=== PATIENT | female | born 1945 | race Caucasian/White ===

== ENCOUNTER 2017-03-28 01:17 | Emergency (ER) | payer MEDICARE ==
[2017-03-28 01:56] LABS: HEMATOCRIT 31.9 % (41.0-60); HEMOGLOBIN 10.8 gm/dL (12-16); MEAN CELL VOLUME 90.1 fl (81-100); MEAN CORPUSCULAR HEMOGLOBIN 30.6 pg (27.0-31.0); MEAN CORPUSCULAR HGB CONC 33.9 pg (28.0-36.0); MEAN PLATELET VOLUME 8.4 fl; PLATELET COUNT 306 Th/cmm (150-400); RED BLOOD COUNT 3.54 Mil/cmm (3.80-5.20); WHITE BLOOD COUNT 6.2 Th/cmm (4.8-10.8)
[2017-03-28 01:59] LABS: MANUAL DIFF REQUIRED? YES
[2017-03-28 02:13] LABS: ALB/GLOB RATIO 1.1 (1.0-1.8); ALBUMIN 3.1 gm/dL (3.7-5.3); ALKALINE PHOSPHATASE 50 U/L (34-104); ANION GAP 11.5 (7.0-16.0); BILIRUBIN,TOTAL 0.3 mg/dL (0.3-1.0); BUN - UREA NITROGEN 12 mg/dL (7-25); CALCIUM SERUM 8.6 mg/dL (8.6-10.3); CARBON DIOXIDE 23.7 mEq/L (21.0-31.0); CHLORIDE 109 mEq/L (98-107); CREATININE - SERUM 0.8 mg/dL (0.6-1.2); GFR AFRICAN-AMERICAN > 60.0 ml/min (>90); GFR NON AFRICAN-AMERICAN > 60.0 ml/min; GLUCOSE 167 mg/dL (70-105); POTASSIUM SERUM 3.2 mEq/L (3.5-5.1); SGOT 11 U/L (13-39); SGPT/ALT 9 U/L (7-52); SODIUM SERUM 141 mEq/L (136-145)
[2017-03-28 02:16] LABS: BAND NEUTROPHILE 4 % (0-10); EOSINOPHIL 2 % (0-5); LYMPHOCYTE 12 % (20-50); MONOCYTE 5 % (2-10); NEUTROPHILS 77 % (40-80); PLATELET ESTIMATE ADEQUATE (NORMAL); TOTAL CELLS COUNTED 100
--- NOTE | 2017-03-28 02:32 | ED Physician Chart ---
ED Chief Complaint/HPI - Patient Information Date Seen:: 03/28/17 Time Seen:: 02:32 Chief Complaint:: Hypoglycemia History of Present Illness:: 71 yo female was found to have hypoglycemia at 22 about 1 hour prior at a SNF. After Glucagon IM was given at SNF, blood glucose went up to 34. 10% Dextrose 50ml was infused IV on route to ER. Upon arrival at ER, blood glucose was 119. A subsequent glucose 20 minutes later was 167. The patient is oriented x 3. Allergies:: Allergies Allergy/AdvReac Type Severity Reaction Status Date / Time morphine Allergy Verified 03/28/17 01:27 Vitals:: Vital Signs - 8 hr 03/28/17 01:20 Temp 97.1 F HR 74 RR 18 BP 117/63 O2 Sat % 100 ED Review of Systems - Review of Systems General/Constitutional: No fever Skin: No skin lesions Head: No headache Eyes: No pain ENT: No earache Neck: No neck pain Cardio Vascular: No chest pain Pulmonary: No SOB GI: No nausea, No vomiting Musculoskeletal: No bone or joint pain Neurological: No focal symptoms, Seizure ED Past Medical History - Past Medical History Past Medical History: HTN, DM, Dyslipidemia, Other (AFib) Social History: Non Smoker, No Alcohol, No Drug Use Surgical History: None Family Medical History - Family Member Mother History Unknown: Yes ED Physical Exam - Physical Examination General/Constitutional: Awake Head: Atraumatic Eyes: PERRL Skin: No skin lesions ENMT: Nasal exam nl Neck: No nuchal rigidity Respiratory: No Wheeze/Rhonchi/Rales Cardio Vascular: RRR, No murmur, gallop, rubs, NL S1 S2 GI: No tenderness/rebounding/guarding Extremities: normal strength in all extremities Neuro/Psych: No focal deficits ED Labs/Radiology/EKG Results - Lab Results Results: Laboratory Tests 03/28/17 03/28/17 03/28/17 01:23 01:44 01:44 WBC 6.2 RBC 3.54 L Hgb 10.8 L Hct 31.9 L MCV 90.1 MCH 30.6 MCHC Differential 33.9 RDW 14.0 Plt Count 306 MPV 8.4 Band Neutrophils % 4 Neutrophils (Manual) 77 Lymphocytes 12 L Monocytes 5 Eosinophils 2 Platelet Estimate ADEQUATE Sodium 141 Potassium 3.2 L Chloride 109 H Carbon Dioxide 23.7 Anion Gap 11.5 BUN 12 Creatinine 0.8 Est GFR ( Amer) > 60.0 Est GFR (Non-Af Amer) > 60.0 BUN/Creatinine Ratio 15.0 Glucose 167 H POC Glucose 119 H Calcium 8.6 Total Bilirubin 0.3 AST 11 L ALT 9 Alkaline Phosphatase 50 Total Protein 6.0 Albumin 3.1 L Globulin 2.9 Albumin/Globulin Ratio 1.1 ED Assessment - Assessment General Assessment: DM II Hypoglycemia Hypokalemia Assessment/Comments:: CBC, CMP, A1c Accu check KCL 40 mEq po once D/c to SNF 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 Is Septic Shock (SBP<90, OR Lactate>4 mmol\L) present?: No - <6hrs of presentation: Vital Signs: Vital Signs - 8 hr 03/28/17 01:20 Temp 97.1 F HR 74 RR 18 BP 117/63 O2 Sat % 100 ED Reassessment (Disposition) - Reassessment Reassessment Condition:: Improved - Patient Disposition Discharge/Transfer:: [facility] - SNF ED Discharge Plan - Patient Disposition Instructions: Hypokalemia, Hypoglycemia, [id number] Additional Instructions: FOLLOW UP WITH YOUR PRIMARY MEDICAL DOCTOR IFEOMA
[2017-03-28] MEDS ORDERED: Potassium Chloride 20 mEq ER Tab PO ONE (02:37)
[2017-03-28] MEDS: Potassium Chloride 20 mEq ER Tab PO ONE (02:39)
[2017-03-28 20:54] LABS: A1C % 7.9 % (4.0-6.0)
== END 2017-03-28 03:20 ==
LOC: ER 01:17
DX: E11.649 Type 2 diabetes mellitus with hypoglycemia without coma (principal); E78.5 Hyperlipidemia, unspecified; I10 Essential (primary) hypertension
CPT/HCPCS: 36415-UA; 80053-TC; 82948-90; 83036-90; 85007-TC; 85027-TC; 93005